=== PATIENT | female | born 1985 | race American Indian/Alaskan Native ===

== ENCOUNTER 2018-12-18 17:11 | Emergency (ER) | payer OTHER, MEDICAID ==
[~2018-12-18] VITALS: Ht 157.5 cm; Wt 59.4 kg
[2018-12-18] MEDS ORDERED: PERIDEX15 ML MM (19:39)
[2018-12-18] MEDS ORDERED: TRAM50 PO (19:39)
[2018-12-18] MEDS ORDERED: Cleocin HCl300 MG PO (19:39)
[2018-12-19] MEDS ORDERED: CLON.2 PO (16:19)
[2018-12-19] MEDS ORDERED: COMPAZINE10 MG PO (16:19)
[2018-12-19] MEDS ORDERED: NAPR550 PO (16:19)
[2018-12-19] MEDS ORDERED: LORA2 PO (16:19)
== END 2018-12-20 19:44 | disposition home or self-care (01) ==
LOC: ER 17:11
DX: K04.7 Periapical abscess without sinus (principal); F41.9 Anxiety disorder, unspecified; Z88.0 Allergy status to penicillin; F17.200 Nicotine dependence, unspecified, uncomplicated
CPT/HCPCS: 99282; A9270-GY